=== PATIENT | female | born 1990 | race African-American/Black ===

== ENCOUNTER 2020-10-06 20:58 | Emergency (ER) | payer MEDICAID ==
[~2020-10-06] VITALS: Ht 152.4 cm; Wt 55.0 kg
[~2020-10-06 20:58] MED LIST: QUET25TA MT; SERT25TA MT
[2020-10-06 21:46] LABS: CLARITY URINE CLEAR (CLEAR); COLOR URINE YELLOW (YELLOW); KETONES URINE TRACE (NEGATIVE); LEUKOCYTE ESTERASE URINE NEGATIVE (NEGATIVE); NITRITE URINE NEGATIVE (NEGATIVE); OCCULT BLOOD URINE NEGATIVE (NEGATIVE); PH URINE 5.5 (4.5-8.0); PROTEIN URINE NEGATIVE (NEGATIVE); SPECIFIC GRAVITY URINE 1.035 (1.005-1.030); UROBILINOGEN URINE 0.2 E.U./dL (0.2-1.0)
[2020-10-06] MEDS ORDERED: FAMOTIDINE 20MG TABLET PO ONE (23:00)
[2020-10-06] MEDS ORDERED: MAGNESIUM/ALUMINUM HYDROXIDE/SIMETHICONE 30ML UDC PO ONE (23:00)
[2020-10-06] MEDS ORDERED: VISCOUS LIDOCAINE 2% 15 ML UDC PO ONE (23:00)
[2020-10-06] MEDS ORDERED: FAMOTIDINE 20MG/2ML VIAL IV ONE (23:15)
[2020-10-06] MEDS ORDERED: METOCLOPRAMIDE HCL 10MG/2ML VIAL IV ONE (23:15)
[2020-10-06 23:20] LABS: CHLORIDE 108 mEq/L (98-107)
[2020-10-06 23:24] LABS: INR 1.1; PROTHROMBIN TIME 11.4 sec (9.6-11.0)
[2020-10-06 23:28] LABS: BASOPHILS % 0.5 % (0.0-2.0); EOSINOPHILS % 3.6 % (0.0-5.0); HEMATOCRIT. 39.3 % (36.0-48.0); HEMOGLOBIN. 13.3 g/dL (12.0-16.0); LYMPHOCYTES % 36.2 % (20.0-50.0); MEAN CORPUSCULAR HEMOGLOBIN 30.3 pg (28.0-32.0); MEAN CORPUSCULAR VOLUME 89.5 fL (81.0-99.0); MONOCYTES % 12.4 % (2.0-8.0); NEUTROPHILS % 47.3 % (40.0-76.0); PLATELET 174 x1000/uL (130-400); RED BLOOD CELL COUNT 4.39 mill/uL (4.2-5.4); RED CELL DISTRIBUTION WIDTH 13.6 % (11.6-14.6)
[2020-10-06 23:43] LABS: B-HCG QUANTITATIVE 40858 mIU/mL (<3)
[2020-10-07] MEDS ORDERED: PYRIDOXINE HCL 50MG TABLET PO ONE (01:45)
[2020-10-07] MEDS ORDERED: DIPHENHYDRAMINE 50MG/ML VIAL IV ONE (01:45)
[2020-10-07] MEDS ORDERED: DOXY1TAB3 MT (01:49)
[2020-10-07] MEDS ORDERED: FAMO-135 MT (01:50)
[2020-10-07 02:11] VITALS: BP 116/68
[2020-10-18] MEDS ORDERED: ACET-2708 MT (01:22)
[2020-10-18] MEDS ORDERED: CEPH500C2 MT (01:24)
== END 2020-10-07 02:04 | disposition home or self-care (01) ==
LOC: ER 20:58
DX: O21.0 Mild hyperemesis gravidarum (principal); Z3A.01 Less than 8 weeks gestation of pregnancy; O26.891 Other specified pregnancy related conditions, first trimester; R10.13 Epigastric pain
CPT/HCPCS: 36415; 76801; 76817; 80053; 81003; 81025; 83690; 84702; 85025; 85610; 86850; 86900; 86901; 96374; 96375; 99284; J1200; J2765; J3490